=== PATIENT | male | born 1995 | race African-American/Black ===

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

== ENCOUNTER 2017-02-19 18:20 | Emergency (ER) | payer MEDICAID, OTHER ==
[2017-02-19] MEDS ORDERED: MORPHINE SULFATE 10 MG/ML INJ IV PRN (18:49)
[2017-02-19] MEDS ORDERED: DIPH/PERTUSS(ACELL)/TETANUS VAC/PF 0.5 ML SYR (>=10YO) IM ONE (18:49)
[2017-02-19] MEDS ORDERED: NORMAL SALINE 1000 ML 1,000 ML IV ONE (18:50)
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
[2017-02-19 20:15] LABS: HEMATOCRIT 45.2 % (37.9-51.0); HEMOGLOBIN 15.2 g/dL (13.5-17.0); HGB HCT DIFFERENCE 0.4; MEAN CORPUSCULAR HEMOGLOBIN 29.6 pg (27.0-33.4); MEAN CORPUSCULAR HGB CONC 33.6 g/dL (32.0-36.0); MEAN CORPUSCULAR VOLUME 88 fl (80-97); RED BLOOD COUNT 5.13 10^6/uL (4.35-5.55); RED CELL DISTRIBUTION WIDTH 12.7 % (11.5-14.0); WHITE BLOOD COUNT 24.2 10^3/uL (4.0-10.5)
[2017-02-19 20:42] LABS: BAND NEUTROPHILS % (MANUAL) 4 % (3-5); BASOPHILS % (MANUAL) 0 % (0-2); EOSINOPHILS % (MANUAL) 0 % (0-6); LYMPHOCYTES % (MANUAL) 9 % (13-45); RBC MORPHOLOGY COMMENT NORMO-CYTIC/CHROMIC; TOTAL CELLS COUNTED 100; TOXIC GRANULATION SLIGHT; TOXIC VACUOLATION PRESENT
[2017-02-19 20:50] LABS: ANION GAP 10 (5-19); BLOOD UREA NITROGEN 12 mg/dL (7-20); CALCIUM 9.5 mg/dL (8.4-10.2); CARBON DIOXIDE 28 mmol/L (22-30); CHLORIDE 103 mmol/L (98-107); GLUCOSE 86 mg/dL (75-110); POTASSIUM 4.2 mmol/L (3.6-5.0); SODIUM 140.6 mmol/L (137-145)
[2017-02-19 20:53] LABS: ALCOHOL < 10 mg/dL (NONE DETECTED)
[2017-02-19 21:36] VITALS: BP 132/67
== END 2017-02-19 21:36 | disposition home or self-care (01) ==
LOC: ER 18:20
DX: S09.90XA Unspecified injury of head, initial encounter (principal); S00.81XA Abrasion of other part of head, initial encounter; S27.322A Contusion of lung, bilateral, initial encounter; S79.921A Unspecified injury of right thigh, initial encounter; S49.91XA Unspecified injury of right shoulder and upper arm, initial encounter; Z23 Encounter for immunization; V86.59XA Driver of other special all-terrain or other off-road motor vehicle injured in nontraffic accident, initial encounter; Z86.14 Personal history of Methicillin resistant Staphylococcus aureus infection
CPT/HCPCS: 99284; 96361; 90471; 96374; 36415; 80307; 85025; 80048; 73552; 73030; 70450; 71260; 72125; 74177; 90715; L0120; J2270; J7030

== ENCOUNTER → 2017-02-25 | Outpatient (CLI) | payer MEDICAID ==
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
== END ==
LOC: OD 15:03
PROVIDERS: ATTEND Nurse Practitioner Family
DX: S49.91XD Unspecified injury of right shoulder and upper arm, subsequent encounter (principal); X58.XXXD Exposure to other specified factors, subsequent encounter; R07.81 Pleurodynia

== ENCOUNTER 2017-07-26 15:22 | Emergency (ER) | payer OTHER, MEDICAID ==
[2017-07-26] MEDS ORDERED: DIPH/PERTUSS(ACELL)/TETANUS VAC/PF 0.5 ML SYR (>=10YO) IM ONE (15:46)
[2017-07-26] MEDS ORDERED: LIDOCAINE 4%/TETRACAINE 0.5%/EPI 0.18% 5 ML TOPICAL SOLN TOP ONE (15:46)
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
== END 2017-07-26 17:03 | disposition home or self-care (01) ==
LOC: ER 15:22
DX: S81.812A Laceration without foreign body, left lower leg, initial encounter (principal); S60.312A Abrasion of left thumb, initial encounter; S60.311A Abrasion of right thumb, initial encounter; J34.89 Other specified disorders of nose and nasal sinuses; V43.52XA Car driver injured in collision with other type car in traffic accident, initial encounter; Y93.89 Activity, other specified
CPT/HCPCS: 99283; 90471; 90715; J3490